=== PATIENT | female | born 1965 ===

== ENCOUNTER → 2022-05-27 | Outpatient (CLI) | payer BC ==
[2022-05-27 18:58] LABS: Bun/Creatinine Ratio 20.7 (12.0-20.0); Calcium, Blood 9.1 mg/dL (8.5-10.1); Creatinine, Blood 0.53 mg/dL (0.40-1.00)
== END | disposition home or self-care (01) ==
LOC: LAB SHORT 14:58
PROVIDERS: Nurse Practitioner Family
DX: R73.03 Prediabetes (principal)
CPT/HCPCS: 80048; 83036